=== PATIENT | female | born 1990 | race Caucasian/White ===

== ENCOUNTER 2017-11-07 20:15 | Emergency (ER) | payer SELFPAY ==
[~2017-11-07] VITALS: Ht 172.7 cm; Wt 99.8 kg
[~2017-11-07 20:15] MED LIST: CEFU250T80 PO; ONDA8TAB9 PO
[2017-11-07 20:57] LABS: BILIRUBIN,URINE NEGATIVE (NEGATIVE); CLARITY,URINE VERY CLOUDY; COLOR,URINE OTHER; GLUCOSE, URINE (UA) 4+ (NEGATIVE); KETONES,URINE 3+ (NEGATIVE); LEUKOCYTE ESTERASE ,URINE 1+ (NEGATIVE); NITRITE,URINE NEGATIVE (NEGATIVE); PH,URINE 5 (5-9); PROTEIN,URINE 2+ (NEGATIVE); UROBILINOGEN,URINE NORMAL (NORMAL)
--- NOTE | 2017-11-07 20:59 | ED GU-Female ---
General Chief Complaint: -Female Stated Complaint: ;BLEEDING WITH CLOTS Nursing Triage Note: States that she has had a blood draw comfirmed for . States that lmp was end of september. States having passed a large clot the size of her hand this am and is having bleeding and cramping Nursing Sepsis Screen: No Definite Risk Source: patient Exam Limitations: no limitations History of Present Illness Date Seen by Provider: Nov 07, 2017 Time Seen by Provider: 20:57 Initial Comments to ER with reports of vaginal bleeding. This morning about 5:30 AM she was awakened with suprapubic cramping and passage of a large clots about the size of the palm of her hand. AB 2. Last menstrual period was between the and 08 of October. She rates her pain currently at about8 or 9 out of 10. Timing/Duration: constant Severity/Quality: cramping Location: suprapubic Activities at Onset: none Allergies and Home Medications Allergies Coded Allergies: No Known Drug Allergies (Unverified , 11/07/17) Home Medications Cefuroxime Axetil 250 Mg Tablet, 250 MG PO BID Prescribed by: SHAW ZHENG on 10/03/171833 Ondansetron 8 Mg Tab.rapdis, 8 MG PO Q6H PRN for NAUSEA/VOMITING-1ST LINE Prescribed by: SHAW ZHENG on 10/03/171833 Patient Home Medication List Home Medication List Reviewed: Yes Review of Systems Constitutional: see HPI EENTM: see HPI Respiratory: no symptoms reported Cardiovascular: no symptoms reported Gastrointestinal: abdominal pain Genitourinary: no symptoms reported Musculoskeletal: no symptoms reported Skin: no symptoms reported Psychiatric/Neurological: No Symptoms Reported Past [id number] Hx Patient Social History Alcohol Use: Denies Use Recreational Drug Use: No Smoking Status: Current Everyday Smoker 2nd Hand Smoke Exposure: No Recent Foreign Travel: No Contact w/Someone Who Travel: No Recent Infectious Disease Expo: No Recent Hopitalizations: No Physical Abuse: No Sexual Abuse: No Mistreated: No Fear: No Immunizations Up To Date Tetanus Booster (TDap): Unknown Past Medical History Surgeries: No Asthma Currently Using CPAP: No Currently Using BIPAP: No Cardiac: No Neurological: No Genitourinary: No Gastrointestinal: No Musculoskeletal: No Endocrine: Yes Diabetes, Insulin dep HEENT: No Cancer: No Psychosocial: No Nursing Suicide Risk Score: 0 Integumentary: No Blood Disorders: No Physical Exam Vital Signs Vital Signs - First Documented 11/07/17 20:38 Temp 97.0 Pulse 84 Resp 14 B/P (MAP) 117/81 (93) Pulse Ox 98 Capillary Refill : Less Than 3 Seconds Height, Weight, BMI Height: 5'8.00" Weight: 220lbs. oz. 99.860588wp; BMI Method:Stated General Appearance: WD/WN, no apparent distress HEENT: PERRL/EOMI, normal ENT inspection Neck: non-tender, full range of motion Gastrointestinal: normal bowel sounds, soft, tenderness (minimal suprapubic) Extremities: normal range of motion, non-tender Neurologic/Psychiatric: alert, normal mood/affect, oriented x 3 Skin: normal color, warm/dry Progress/Results/Core Measures Suspected Sepsis Recent Fever Within 48 Hours: No Infection Criteria Present: None New/Unexplained Altered Menta: No Sepsis Screen: No Definite Risk SIRS Temperature:97.0 Pulse: 84 Respiratory Rate: 14 Laboratory Tests 11/07/17 21:19: White Blood Count 10.6 Blood Pressure 117 /81 Mean: 93 Laboratory Tests 11/07/17 21:19: Platelet Count 341 Results/Orders Lab Results Laboratory Tests Test 11/07/17 20:30 11/07/17 21:19 Range/Units Urine Color OTHER H Urine Clarity VERY CLOUDY H Urine pH 5 5-9 Urine Specific [place] 1.020 1.016-1.022 Urine Protein 2+ H NEGATIVE Urine Glucose (UA) 4+ H NEGATIVE Urine Ketones 3+ H NEGATIVE Urine Nitrite NEGATIVE NEGATIVE Urine Bilirubin NEGATIVE NEGATIVE Urine Urobilinogen NORMAL NORMAL MG/DL Urine Leukocyte Esterase 1+ H NEGATIVE Urine RBC (Auto) 5+ H NEGATIVE Urine RBC TNTC H /HPF Urine WBC 2-5 /HPF Urine Squamous Epithelial Cells 5-10 /HPF Urine Crystals NONE /LPF Urine Bacteria NONE /HPF Urine Casts NONE /LPF Urine Mucus NEGATIVE /LPF Urine Culture Indicated NO White Blood Count 10.6 4.3-11.0 10^3/uL Red Blood Count 4.70 4.35-5.85 10^6/uL Hemoglobin 14.5 11.5-16.0 G/DL Hematocrit 40 35-52 % Mean Corpuscular Volume 86 80-99 FL Mean Corpuscular Hemoglobin 31 25-34 PG Mean Corpuscular Hemoglobin Concent 36 32-36 G/DL Red Cell Distribution Width 13.0 10.0-14.5 % Platelet Count 341 130-400 10^3/uL Mean Platelet Volume 9.7 7.4-10.4 FL Neutrophils (%) (Auto) 63 42-75 % Lymphocytes (%) (Auto) 29 12-44 % Monocytes (%) (Auto) 6 0-12 % Eosinophils (%) (Auto) 2 0-10 % Basophils (%) (Auto) 0 0-10 % Neutrophils # (Auto) 6.7 1.8-7.8 X 10^3 Lymphocytes # (Auto) 3.0 1.0-4.0 X 10^3 Monocytes # (Auto) 0.6 0.0-1.0 X 10^3 Eosinophils # (Auto) 0.2 0.0-0.3 10^3/uL Basophils # (Auto) 0.0 0.0-0.1 10^3/uL Human Chorionic Gonadotropin, Quant < 5 <5 MIU/ML My Orders Orders - SHAW ZHENG APRN Cbc With Automated Diff (11/07/17 20:51) Hcg,Quantitative (11/07/17 20:51) Us Ob Single Fetus<14 [id number] (11/07/17 20:51) Abo Rh Type (11/07/17 20:51) Ua Culture If Indicated (11/07/17 20:53) Hydrocodone/Apap 5/325 Tablet (Lortab 5 (11/07/17 21:00) Medications Given in ED Current Medications Medications Dose Ordered Sig/Basil Route Start Time Stop Time Status Last Admin Dose Admin Acetaminophen/ Hydrocodone Bitart 1 tab ONCE ONCE PO 11/07/17 21:00 11/07/17 21:01 DC 11/07/17 21:17 1 TAB Vital Signs/I&O 11/07/17 20:38 Temp 97.0 Pulse 84 Resp 14 B/P (MAP) 117/81 (93) Pulse Ox 98 Capillary Refill : Less Than 3 Seconds Blood Pressure Mean: 93 Departure Impression Primary Impression: Not currently Disposition: 01 HOME, SELF-CARE Condition: Stable Departure-Patient Inst. Decision time for Depature: 20:59 Referrals: REGIS SHEIKH APRN (PCP/Family) Primary Care Physician Patient Instructions: Tests Add. Discharge Instructions: All discharge instructions reviewed with patient and/or family. Voiced understanding. Copy Copies To 1: ALEXANDRO SAMPSON MD, PETER J APRN Nov 07, 2017 20:59
[2017-11-07] MEDS ORDERED: HYDROcodone/APAP 5 MG/325 MG (LORTAB) TAB PO ONE (21:00)
[2017-11-07 21:04] LABS: RBC,URINE TNTC /HPF
[2017-11-07 21:27] LABS: BASOPHILS % (AUTO) 0 % (0-10); EOSINOPHILS # (AUTO) 0.2 10^3/uL (0.0-0.3); EOSINOPHILS % (AUTO) 2 % (0-10); HEMATOCRIT 40 % (35-52); HEMOGLOBIN 14.5 G/DL (11.5-16.0); LYMPHOCYTES % (AUTO) 29 % (12-44); MEAN CORPUSCULAR HEMOGLOBIN 31 PG (25-34); MEAN CORPUSCULAR HGB CONC 36 G/DL (32-36); MEAN CORPUSCULAR VOLUME 86 FL (80-99); MEAN PLATELET VOLUME 9.7 FL (7.4-10.4); MONOCYTES # (AUTO) 0.6 X 10^3 (0.0-1.0); MONOCYTES % (AUTO) 6 % (0-12); NEUTROPHILS # (AUTO) 6.7 X 10^3 (1.8-7.8); NEUTROPHILS % (AUTO) 63 % (42-75); PLATELET COUNT 341 10^3/uL (130-400); WHITE BLOOD COUNT 10.6 10^3/uL (4.3-11.0)
[2017-11-07 22:27] VITALS: BP 118/83
--- NOTE | 2017-11-08 06:21 | Diagnostic Imaging Report ---
PROCEDURE: US OB transvaginal. TECHNIQUE: Multiple realtime grayscale images were obtained over the pelvis both transvaginal and endovaginally in various projections. INDICATION: Vaginal bleeding and positive test in September with unsure last menstrual period. FINDINGS: The uterus measures 7 x 3.2 x 3.8 cm. There is an empty 6 mm thick endometrium. Left ovary is normal in size, morphology and demonstrates normal blood flow. The right ovary was not visualized. There are no adnexal masses. There is no free pelvic fluid. IMPRESSION: No evidence of an intrauterine or extrauterine . Recommend correlation with beta hCG and followup ultrasound as clinically warranted. Nonvisualization of the right ovary. Dictated by: Dictated on workstation # [id number]
== END 2017-11-07 22:27 | disposition home or self-care (01) ==
LOC: EDUNIT# 20:15 → ER 20:17
DX: N93.9 Abnormal uterine and vaginal bleeding, unspecified (principal); J45.909 Unspecified asthma, uncomplicated; E11.9 Type 2 diabetes mellitus without complications; F17.200 Nicotine dependence, unspecified, uncomplicated
CPT/HCPCS: 36415; 76817; 81000; 84702; 84703; 85025; 86900; 86901